=== PATIENT | female | born 1975 | race Caucasian/White ===

== ENCOUNTER → 2017-09-24 | Outpatient (CLI) | payer OTHER ==
[~2017-09-24] MED LIST: ESTRADIOL 1 MG T1 M1 PO; NEXIUM40 MG PO; PROZAC20 MG PO; SUPRAX400 M1 PO; ZITHROMAX1 GM PO
== END ==
LOC: M.RAD 12:37
DX: N63.42 Unspecified lump in left breast, subareolar (principal)

== ENCOUNTER → 2017-09-26 | Outpatient (CLI) | payer OTHER | END | disposition home or self-care (01) | LOC: M.ULTRA 07:59 | DX: D24.2 Benign neoplasm of left breast (principal); R92.1 Mammographic calcification found on diagnostic imaging of breast ==

== ENCOUNTER → 2017-10-16 | Outpatient (CLI) | payer OTHER | LOC: M.RAD 12:42 | DX: S99.821A Other specified injuries of right foot, initial encounter (principal); X58.XXXA Exposure to other specified factors, initial encounter; Y93.89 Activity, other specified; Y92.89 Other specified places as the place of occurrence of the external cause; Y99.8 Other external cause status ==

== ENCOUNTER → 2017-11-28 | Outpatient (CLI) | payer OTHER | LOC: M.CT 11-27 14:00 | DX: N83.291 Other ovarian cyst, right side (principal) ==

== ENCOUNTER 2017-12-03 14:08 | Emergency (ER) | payer OTHER ==
[~2017-12-03] VITALS: Ht 180.3 cm; Wt 81.7 kg
[2017-12-03 14:24] LABS: URINE BILIRUBIN NEGATIVE (Negative); URINE BLOOD 3+ (Negative); URINE CLARITY CLEAR; URINE COLOR YELLOW; URINE GLUCOSE-RANDOM NEGATIVE (Negative); URINE KETONES NEGATIVE (Negative); URINE LEUKOCYTES-REFLEX NEGATIVE (Negative); URINE NITRITE-REFLEX NEGATIVE (Negative); URINE PROTEIN NEGATIVE (Negative); URINE UROBILINOGEN 0.2 E.U./dl (0.2-1.0)
[2017-12-03] MEDS ORDERED: PROZAC20 MG PO (14:24)
[2017-12-03] MEDS ORDERED: NEXIUM40 MG PO (14:25)
[2017-12-03] MEDS ORDERED: ESTRADIOL 1 MG T1 M1 PO (14:25)
[2017-12-03 14:38] LABS: ABSOLUTE EOSINOPHILS 0.2 thou/uL (0.0-0.7); ABSOLUTE LYMPHOCYTES 1.1 thou/uL (0.8-5.3); ABSOLUTE MONOCYTES 0.3 thou/uL (0.0-1.2); ABSOLUTE NEUTROPHILS 2.9 thou/uL (1.6-8.1); BASOPHILS 0.9 %; EOSINOPHILS 3.9 %; HEMATOCRIT 38.2 % (37.0-47.0); HEMOGLOBIN 12.7 gm/dL (12.0-15.0); LYMPHOCYTES 24.9 %; MCHC 33.3 g/dL (28.0-37.0); MCV 96.1 fL (80.0-100.0); MPV 9.5 fl. (7.2-11.1); NUCLEATED RBCS 0 /100WBC; PLATELET COUNT* 173 thou/uL (150-400); POLYS 63.3 %; RBC 3.97 mil/uL (4.20-5.00); RDW-CV 14.1 % (10.5-14.5); WBC 4.6 thou/uL (4.0-11.0)
[2017-12-03 14:40] LABS: BACTERIA-REFLEX 1-9 Few /HPF (None Seen); CRYSTALS None Seen /LPF (None Seen); HYALINE CASTS 0-3 Few /LPF (None Seen); SQUAMOUS >10 Many /LPF (0-3); URINE RBC 3-10 Few /HPF (0-2); URINE WBC-REFLEX None Seen /HPF (0-5)
[2017-12-03 14:46] LABS: CALCIUM 8.4 mg/dL (8.5-10.1); CREATININE 0.8 mg/dL (0.6-1.3); POTASSIUM 3.8 mmol/L (3.5-5.1)
[2017-12-03 14:50] LABS: ALBUMIN 3.6 g/dL (3.4-5.0); TOTAL BILIRUBIN 0.2 mg/dL (<0.1-1.0); TOTAL PROTEIN 6.5 g/dL (6.4-8.2)
[2017-12-03] MEDS ORDERED: ZITHROMAX1 GM PO (16:48)
[2017-12-03] MEDS ORDERED: SUPRAX400 M1 PO (16:48)
[2017-12-03 16:57] VITALS: BP 117/57
--- NOTE | 2017-12-04 13:36 | EKG ---
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
== END 2017-12-03 16:59 | disposition home or self-care (01) ==
LOC: M.ERS 14:08
PROVIDERS: Nurse Practitioner Family
DX: R10.2 Pelvic and perineal pain (principal); F17.200 Nicotine dependence, unspecified, uncomplicated

== ENCOUNTER → 2017-12-16 | Outpatient (CLI) | payer OTHER | LOC: M.ULTRA 10:18 | DX: N63.20 Unspecified lump in the left breast, unspecified quadrant (principal); N64.4 Mastodynia; R10.32 Left lower quadrant pain ==

== ENCOUNTER 2018-11-17 09:13 | Inpatient (IN) | payer OTHER ==
[~2018-11-17] VITALS: Ht 180.3 cm; Wt 90.3 kg
--- NOTE | ~2018-11-17 | PROC ---
[facility] [address] [place] [address] PROCEDURE REPORT Name: MARIA DEL CARMEN LOZA Room: [address] IN ..#: [id number] Admission: 11/17/18 Attend Phys: Prem Ferrell MD Discharge: 11/20/18 Date of : 71 Report #: [id number] THIS REPORT FOR: //name// For GI report, please see the Provation report in Perceptive 7 content. By: [id number] Records Staff ELLEN /AJIT
[2018-11-17 09:16] VITALS: BP 128/74
[2018-11-17] MEDS ORDERED: VRAYLAR1 EACH PO (09:20)
[2018-11-17] MEDS ORDERED: DIAZEPAM 2MG TAB2 MG PO (09:20)
[2018-11-17 09:46] LABS: URINE BILIRUBIN NEGATIVE (Negative); URINE BLOOD 1+ (Negative); URINE CLARITY CLEAR; URINE COLOR YELLOW; URINE GLUCOSE-RANDOM NEGATIVE (Negative); URINE KETONES NEGATIVE (Negative); URINE LEUKOCYTES-REFLEX NEGATIVE (Negative); URINE NITRITE-REFLEX NEGATIVE (Negative); URINE PROTEIN NEGATIVE (Negative); URINE SPECIFIC GRAVITY <= 1.005 (1.005-1.030); URINE UROBILINOGEN 0.2 E.U./dl (0.2-1.0)
[2018-11-17 09:54] LABS: METHADONE Negative (Negative)
[2018-11-17 09:55] LABS: ABSOLUTE BASOPHILS 0.1 thou/uL (0.0-0.2); ABSOLUTE EOSINOPHILS 0.2 thou/uL (0.0-0.7); ABSOLUTE MONOCYTES 0.3 thou/uL (0.0-1.2); ABSOLUTE NEUTROPHILS 2.7 thou/uL (1.6-8.1); BASOPHILS 1.8 %; EOSINOPHILS 4.1 %; HEMATOCRIT 39.9 % (37.0-47.0); HEMOGLOBIN 13.5 gm/dL (12.0-15.0); LYMPHOCYTES 24.4 %; MCHC 33.9 g/dL (28.0-37.0); MCV 94.5 fL (80.0-100.0); MONOCYTES 6.9 %; MPV 9.3 fl. (7.2-11.1); NUCLEATED RBCS 0 /100WBC; PLATELET COUNT* 168 thou/uL (150-400); POLYS 62.8 %; RBC 4.22 mil/uL (4.20-5.00); RDW-CV 13.5 % (10.5-14.5); WBC 4.3 thou/uL (4.0-11.0)
[2018-11-17 10:00] LABS: BACTERIA-REFLEX 1-9 Few /HPF (None Seen); CASTS None Seen /LPF (None Seen); CRYSTALS None Seen /LPF (None Seen); MUCUS None Seen strn/LPF (None Seen); SQUAMOUS 4-10 Moderate /LPF (0-3); URINE RBC 3-10 Few /HPF (0-2); URINE WBC-REFLEX 0-5 Rare /HPF (0-5)
[2018-11-17 10:03] LABS: CALCIUM 8.8 mg/dL (8.5-10.1); CREATININE 0.8 mg/dL (0.6-1.3)
[2018-11-17 10:08] LABS: ALBUMIN 3.4 g/dL (3.4-5.0); TOTAL BILIRUBIN 0.4 mg/dL (<0.1-1.0); TOTAL PROTEIN 6.4 g/dL (6.4-8.2)
[2018-11-17 10:17] LABS: AMP/METHAMP Negative (Negative); BARBITURATES Negative (Negative); BENZODIAZEPINES Negative (Negative); COCAINE Negative (Negative); OPIATES Negative (Negative); PCP Negative (Negative); THC POSITIVE (Negative)
[2018-11-17 13:49] VITALS: BP 110/57
[2018-11-17 14:18] VITALS: BP 124/29
[2018-11-17 16:44] VITALS: BP 112/79; BP 119/74; BP 129/68
--- NOTE | 2018-11-17 17:05 | NUR ---
PATIENT ADMITTED TO ROOM 111 [facility] ER. ALERT AND ORIENTED X 4. C/O AND PAIN, PRN MORPHINE GIVEN PER MAR ORDERS. IVF AND SCHED ABX INFUSED. NO SKIN BREAKDOWN. REFUSED SCD'S. PATIENT BROUGHT IN HOME BIPOLAR MEDICATION, SENT TO PHARMACY PER PROTOCOL. VITALS STABLE. CLEAR LIQUID DIET. NPO AFTER MIDNIGHT. ORIENTED TO CALL LIGHT. CALL LIGHT WITHIN REACH, WILL CONTINUE TO MONITOR.
[2018-11-17 20:50] VITALS: BP 133/50
[2018-11-18 03:48] LABS: HEMATOCRIT 35.8 % (37.0-47.0); MCH 32.1 pg (26.0-34.0); MCHC 33.6 g/dL (28.0-37.0); MCV 95.4 fL (80.0-100.0); MPV 10.1 fl. (7.2-11.1); RBC 3.75 mil/uL (4.20-5.00); RDW-CV 13.4 % (10.5-14.5); WBC 6.4 thou/uL (4.0-11.0)
[2018-11-18 04:08] LABS: CALCIUM 8.4 mg/dL (8.5-10.1); CREATININE 0.7 mg/dL (0.6-1.3); MAGNESIUM 1.9 mg/dL (1.8-2.4); POTASSIUM 4.7 mmol/L (3.5-5.1); TOTAL BILIRUBIN 0.4 mg/dL (<0.1-1.0); TOTAL PROTEIN 5.6 g/dL (6.4-8.2)
--- NOTE | 2018-11-18 05:24 | NUR ---
PATIENT HAS SLEPT OFF AND ON DURING THE NIGHT BUT RESTLESS AT TIMES. VSS ON RA. PAIN CONTROLLED WITH IV PAIN MEDICATION AND CHARTED. NO C/O NAUSEA. PATIENT HAS REMAINED NPO SINCE MIDNIGHT. IV IN LEFT AC- NS @ 150ML/HR. PATIENT INSTRUCTED TO USE CALL LIGHT WHEN NEEDING ASSISTANCE. HOURLY ROUNDS MADE. WILL CONTINUE WITH PLAN OF CARE AND NURSING TO MONITOR.
[2018-11-18 07:40] VITALS: BP 131/53
--- NOTE | 2018-11-18 12:57 | NUR ---
SW met with pt to complete initial assessment, introduce self, and SW CM role. Pt was in tears and in pain; she explained she had morphine shot 15 minutes ago but was not feeling any relief. Pt expecting to have an endoscopy tomorrow. Pt lives at home with significant other and is independent with mobility and ADLs. Pt does not anticipate any dc needs at this time. SW to continue to follow to assist with safe dc planning if needs arise.
[2018-11-18 16:30] VITALS: BP 140/83
--- NOTE | 2018-11-18 18:11 | NUR ---
ASSUMED CARE OF PATIENT AT APPROX 0730. ALERT AND ORIENTED X4. ASSESSMENT COMPLETED AND CHARTED. VSS ON ROOM AIR. PAIN MANAGED WITH MORPHINE IV. NAUSEA MANAGED WITH IV ZOFRAN. NO COMPLAINTS OF SOA. PATIENT HAD SOME ANXIETY MID MORNING, GAVE XANAX WITH RELIEF NOTED. FLUIDS AND ANTIBIOTICS INFUSED ORDERED. PATIENT STARTED ON BOWEL PREP AND HAVING MULTIPLE BOWEL MOVEMENTS. EGD AND COLONOSCOPY SCHEDULED FOR TOMORROW. PATIENT UP AD MARJORIE IN THE ROOM. HOURLY ROUNDS COMPLETED. WILL CONTINUE TO MONITOR.
--- NOTE | 2018-11-18 19:06 | CON ---
[facility] [address] [place] [address] CONSULTATION Name: MARIA DEL CARMEN LOZA Room: [address] IN [facility].#: [id number] Admission: 11/17/18 Attend Phys: Prem Ferrell MD Discharge: Date of : 71 Report #: [id number] THIS REPORT FOR: //name// CC: Prem José DICTATED BY: Carley Rosen [facility] DATE OF SERVICE: 11/18/2018 Please note at the time of this dictation, the patient was seen and physically examined by myself. REASON FOR CONSULTATION: History of Crohn's disease, abdominal pain, nausea and vomiting. HISTORY OF PRESENT ILLNESS: This is a 43-year-old female who presented to the emergency room with having worsening of her abdominal pain, which was exacerbated over the weekend, likely related to excessive alcohol consumption, which she admits to she was having nausea and vomiting, worsening of her GERD. She was having worsening of her abdominal pain. She has intermittent constipation versus diarrhea and she did notice on Saturday evening and early Saturday morning that she did have some bright red blood noted in her stool. The patient was diagnosed with her Crohn's disease back in around 1999. She has had a small bowel resection and was told that she has been in remission since then. She does state that she did take prednisone about 4 months ago and has used Asacol in the past. Her small bowel resection was back in 2005. She states she will go from constipation to numerous frequency and stooling up to 8 a day and she can go several days without having a bowel movement. She does have some intermittent nocturnal stooling as well with just this generalized abdominal pain. The patient was recently seen in our office on 11/05 by josue Hawkins and was scheduled to have an EGD and colonoscopy on 11/12; however, she canceled her procedure because they needed $600 out of pocket and she did not have that. ALLERGIES: CIPRO, FENTANYL, AND CLONIDINE. MEDICATIONS FROM HOME: Prozac, Nexium, Vraylar and Valium. PAST MEDICAL HISTORY: History of Crohn's. She states ovarian cyst. PAST SURGICAL HISTORY: Small bowel resection of about 6 inches back in 2005, tubal ligation, appendectomy and a cholecystectomy. FAMILY HISTORY: Mother, ulcerative colitis and alcohol abuse. Negative for any GI [place] [address] CONSULTATION Name: MARIA DEL CARMEN LOZA Room: [address]#: [id number] Admission: 11/17/18 Attend Phys: Prem Ferrell MD Discharge: Date of : 71 Report #: [id number] SOCIAL HISTORY: She does smoke about a half a pack per day. She drinks alcohol at least hard liquor drink every night and sometimes excessively on the weekends, which she did this past . She also uses marijuana nightly as well. REVIEW OF SYSTEMS: A 12-point review of systems is essentially negative except what is mentioned in the HPI. PHYSICAL EXAMINATION: VITAL SIGNS: Temperature 36.6, pulse 50, respirations 17, blood pressure 131/53. HEART: Regular rate and rhythm. LUNGS: Clear. ABDOMEN: Soft, positive bowel sounds in all 4 quadrants with diffuse abdominal tenderness noted worsening in the upper epigastric area. LABORATORY DATA: Hemoglobin 12, white count 6.4, platelets 154. GFR is 90, total bilirubin 0.4, alkaline phosphatase is 84, ALT 91, AST is 85, ESR is 4, CRP is less than 2. CT of the abdomen and pelvis shows postsurgical changes, otherwise negative findings. IMPRESSION: Abdominal pain, nausea, vomiting, bright red blood in stool, history of Crohn's, heartburn, B12 deficiency. PLAN: 1. EGD and colonoscopy tomorrow. 2. Clear liquids today. 3. Further recommendations to be made after the procedure has been performed. Thank you for allowing us to participate in this patient's care. Please do not hesitate to call with any questions in regard to this consult. Agree with the above assessment and plan by Carley Rosen <ELECTRONICALLY SIGNED> By: Wang Lundberg MD 11/18/18 1906 1122 1408Wang Lundberg MD /nt
[2018-11-18 21:15] VITALS: BP 118/78
[2018-11-19 03:58] LABS: ALBUMIN 3.3 g/dL (3.4-5.0); CALCIUM 8.1 mg/dL (8.5-10.1); CREATININE 0.8 mg/dL (0.6-1.3); MAGNESIUM 1.9 mg/dL (1.8-2.4); POTASSIUM 3.8 mmol/L (3.5-5.1); TOTAL BILIRUBIN 0.3 mg/dL (<0.1-1.0)
[2018-11-19 04:11] VITALS: BP 118/78
--- NOTE | 2018-11-19 06:12 | NUR ---
PT EXPERIENCED VOMITING AND NAUSEA THROUGHOUT NIGHT. HAD SEVERAL WATERY BOWEL MOVEMENTS. LAST ONE REPORTED TO BE A LIGHT YELLOW. PATIENT HAS BEEN ON 8 MG/ML OF MORPHINE Q8 AND 4 MG/ML ZOFRAN Q4. OTHER PAIN RELIEF COMES FROM CALM ENVIRONMENT AND DIM LIGHTS. PATIENT HAS BEEN NPO SINCE MIDNIGHT.
[2018-11-19 07:50] VITALS: BP 123/77
[2018-11-19 10:00] VITALS: BP 118/78
[2018-11-19 16:00] VITALS: BP 124/73
--- NOTE | 2018-11-19 17:55 | NUR ---
ASSUMED CARE OF PATIENT AT APPROX 0730. ALERT AND ORIENTED X4. ASSESSMENT COMPLETED AND CHARTED. VSS ON ROOM AIR. PAIN MANAGED WITH IV MORPHINE. NAUSEA MANAGED WITH IV ZOFRAN. FLUIDS INFUSED ORDERED. PATIENT TO PACU AT APPROX 0940 AND HAS NOT RETURNED TO UNIT OF THIS TIME. WILL CONTINUE TO MONITOR WHEN PATIENT RETURNS.
--- NOTE | 2018-11-19 18:29 | NUR ---
PATIENT ARRIVED BACK TO UNIT AT 1811. ALERT AND OREINTED X4. NO COMPLAINTS OF NAUSEA OR PAIN. PATIENT EATING REGULAR DINNER TRAY. CALL LIGHT PLACED IN REACH. WILL CONTINUE TO MONITOR.
[2018-11-19 19:30] VITALS: BP 146/78
[2018-11-20 03:57] LABS: CALCIUM 8.4 mg/dL (8.5-10.1); CREATININE 0.9 mg/dL (0.6-1.3); MAGNESIUM 1.7 mg/dL (1.8-2.4); POTASSIUM 3.7 mmol/L (3.5-5.1); TOTAL BILIRUBIN 0.3 mg/dL (<0.1-1.0); TOTAL PROTEIN 5.4 g/dL (6.4-8.2)
--- NOTE | 2018-11-20 06:15 | NUR ---
PATIENT SLEPT ON AND OFF THROUGH NIGHT. ADMINISTERED PAIN MEDICATION Q4 8 ML/MG ALONG WITH ZOFRAN. NO COMPLAINTS OF WORSENING NAUSEA OR PAIN. REPORTED COUGHING UP SLIGHTLY BLOODY SPUTUM AT BEGINNING OF THE SHIFT. THIS APPEARED TO SUBSIDE THROUGH THE NIGHT.
[2018-11-20] MEDS ORDERED: BENTYL 20 MG TA20 M1 PO (07:46)
[2018-11-20 08:00] VITALS: BP 136/75
[2018-11-20 08:22] VITALS: BP 146/78
[2018-11-20 10:33] VITALS: BP 146/78
[2018-11-20 10:55] VITALS: BP 146/78
--- NOTE | 2018-11-20 10:55 | NUR ---
PATIENT DISCHARGED TO HOME. DISCHARGE PAPERS REVIEWED AND SIGNED. PRESCRIPTIONS AND INFORMATION SHEETS GIVEN. IV REMOVED. PATIENT REFUSED SBFT AND TO WAIT FOR GI TO ROUND. PATIENT REFUSED TO WAIT IN ROOM FOR RIDE TO COME. PATIENT WAITING IN CAFETERIA. NURSE MANAGER REVIEW INFORMED.
--- NOTE | 2018-11-21 13:08 | PATH ---
[facility] [address] [place] [address] PATHOLOGY RPT PROCEDURE Name: JUDIE PETERS Room: [address] IN .R.#: [id number] Admission: 11/17/18 Date of : 71 Discharge: 11/20/18 Report #: [id number] Path Case #: [id number] [facility] Accession Number: [id number] . 01 Material submitted: . colon - RANDOM COLON BIOPSIES . 01 Clinical history: . None provided. . 02 Diagnosis: Random colon biopsies: - Focal fresh hemorrhage in otherwise normal colonic mucosa. (JARRETT:pit; 11/21/2018) QTP/11/21/2018 . 02 Electronically signed: . Beka Bucio MD, Pathologist NPI- [id number] . 01 Gross description: . Received in formalin labeled "Judie Peters random colon biopsies" is a 1.8 x 0.5 x 0.2 cm aggregate of anderson-brown mucosa fragments. The specimen is submitted in A1. ([facility]; 11/20/2018) SYC/SYC . 02 Pathologist provided ICD-10: K50.90 . 02 CPT . 901455 Specimen Comment: A courtesy copy of this report has been sent to Specimen Comment: [phone], . Specimen Comment: Report sent to / DR BURGESS Performed at: [address], [place], [place] [id number] MD Albert Caicedo MD Phone: [phone] Performed at: 02 [facility] [address], [place], [place] [id number] MD Beka Bucio MD Phone: [phone]
== END 2018-11-20 10:55 | disposition home or self-care (01) | DRG 386 ==
LOC: M.ERS 09:13 → M.ORTHSURG 12:30 → M.TBA-ER 12:30 → M.ORTHSURG 13:56
PROVIDERS: Personal Emergency Response Attendant; ADMIT Internal Medicine
PROC: 0DJ08ZZ Inspection of Upper Intestinal Tract, Via Natural or Artificial Opening Endoscopic (ICD-10-PCS; principal; 2018-11-19)
DX: K50.90 Crohn's disease, unspecified, without complications (principal); E44.1 Mild protein-calorie malnutrition; K62.5 Hemorrhage of anus and rectum; K21.9 Gastro-esophageal reflux disease without esophagitis; F17.210 Nicotine dependence, cigarettes, uncomplicated; E53.8 Deficiency of other specified B group vitamins; E86.9 Volume depletion, unspecified; K12.0 Recurrent oral aphthae; F32.9 Major depressive disorder, single episode, unspecified; R74.0 Nonspecific elevation of levels of transaminase and lactic acid dehydrogenase [LDH]; F10.10 Alcohol abuse, uncomplicated; K64.9 Unspecified hemorrhoids; K44.9 Diaphragmatic hernia without obstruction or gangrene; Z90.49 Acquired absence of other specified parts of digestive tract; Z88.1 Allergy status to other antibiotic agents; Z88.8 Allergy status to other drugs, medicaments and biological substances; Z79.2 Long term (current) use of antibiotics; Z79.899 Other long term (current) drug therapy; Z88.6 Allergy status to analgesic agent; Z81.1 Family history of alcohol abuse and dependence; Z83.79 Family history of other diseases of the digestive system; Z68.27 Body mass index [BMI] 27.0-27.9, adult

== ENCOUNTER 2020-03-01 12:47 | Emergency (ER) | payer OTHER ==
[~2020-03-01] VITALS: Ht 180.3 cm; Wt 98.0 kg
[~2020-03-01 12:47] MED LIST changes: +BENTYL 20 MG TA20 M1 PO; +DIAZEPAM 2MG TAB2 MG PO; +VRAYLAR1 EACH PO
[2020-03-01] MEDS ORDERED: FLOMAX0.4 MG PO (13:04)
[2020-03-01 13:16] LABS: URINE BILIRUBIN NEGATIVE (Negative); URINE BLOOD 1+ (Negative); URINE CLARITY CLEAR; URINE COLOR YELLOW; URINE GLUCOSE-RANDOM NEGATIVE (Negative); URINE KETONES 1+ (Negative); URINE LEUKOCYTES-REFLEX NEGATIVE (Negative); URINE NITRITE-REFLEX NEGATIVE (Negative); URINE PROTEIN NEGATIVE (Negative); URINE SPECIFIC GRAVITY 1.025 (1.005-1.030); URINE UROBILINOGEN 0.2 E.U./dl (0.2-1.0)
[2020-03-01 13:21] LABS: BACTERIA-REFLEX 1-9 Few /HPF (None Seen); CASTS None Seen /LPF (None Seen); CRYSTALS None Seen /LPF (None Seen); SQUAMOUS 0-3 Few /LPF (0-3); URINE RBC 3-10 Few /HPF (0-2); URINE WBC-REFLEX 0-5 Rare /HPF (0-5)
[2020-03-01 13:36] LABS: CALCIUM 8.1 mg/dL (8.5-10.1); CREATININE 1.4 mg/dL (0.6-1.3); POTASSIUM 4.3 mmol/L (3.5-5.1)
[2020-03-01 13:41] LABS: ALBUMIN 3.9 g/dL (3.4-5.0); TOTAL BILIRUBIN 0.3 mg/dL (<0.1-1.0); TOTAL PROTEIN 7.1 g/dL (6.4-8.2)
[2020-03-01 13:45] LABS: ABSOLUTE EOSINOPHILS 0.2 thou/uL (0.0-0.7); ABSOLUTE LYMPHOCYTES 1.2 thou/uL (0.8-5.3); ABSOLUTE MONOCYTES 0.3 thou/uL (0.0-1.2); ABSOLUTE NEUTROPHILS 2.5 thou/uL (1.6-8.1); BASOPHILS 1.1 %; EOSINOPHILS 5.5 %; HEMATOCRIT 41.6 % (37.0-47.0); LYMPHOCYTES 28.4 %; MCH 32.3 pg (26.0-34.0); MCHC 33.7 g/dL (28.0-37.0); MCV 95.7 fL (80.0-100.0); MONOCYTES 6.7 %; MPV 9.3 fl. (7.2-11.1); NUCLEATED RBCS 0 /100WBC; PLATELET COUNT* 210 thou/uL (150-400); POLYS 58.3 %; RBC 4.35 mil/uL (4.20-5.00); RDW-CV 13.2 % (10.5-14.5); WBC 4.3 thou/uL (4.0-11.0)
[2020-03-01] MEDS ORDERED: HYDROCODON-ACE1 EAC7 PO (15:51)
[2020-03-01] MEDS ORDERED: NAPROSYN500 MG PO (15:51)
[2020-03-01] MEDS ORDERED: ONDANSETRON ODT4 MG PO (16:00)
[2020-03-01 16:06] VITALS: BP 128/81
== END 2020-03-01 16:06 | disposition home or self-care (01) ==
LOC: M.ERS 12:47
PROVIDERS: Physician Assistant
DX: R10.31 Right lower quadrant pain (principal); R10.11 Right upper quadrant pain; K21.9 Gastro-esophageal reflux disease without esophagitis; F17.210 Nicotine dependence, cigarettes, uncomplicated; Z88.1 Allergy status to other antibiotic agents; Z88.6 Allergy status to analgesic agent; Z88.8 Allergy status to other drugs, medicaments and biological substances; Z98.51 Tubal ligation status; Z90.49 Acquired absence of other specified parts of digestive tract

== ENCOUNTER 2020-03-04 08:29 | Observation (INO) | payer OTHER ==
[~2020-03-04] VITALS: Ht 180.3 cm; Wt 98.0 kg
--- NOTE | ~2020-03-04 | PROC ---
[facility] [address] [place] [address] PROCEDURE REPORT Name: MARIA DEL CARMEN LOZA Room: [address] Roxanne Pedersen#: [id number] Admission: 03/04/20 Attend Phys: Cristela Crowell MD Discharge: 03/07/20 Date of : 71 Report #: [id number] THIS REPORT FOR: //name// cc: Katerine José Maggie M. DO ~ For GI report, please see the Provation report in Perceptive 7 content. By: [id number] Records Staff [facility] /AJIT
[~2020-03-04 08:29] MED LIST changes: +FLOMAX0.4 MG PO; +HYDROCODON-ACE1 EAC7 PO; +NAPROSYN500 MG PO; +ONDANSETRON ODT4 MG PO
[2020-03-04 08:34] VITALS: BP 135/69
[2020-03-04 08:54] LABS: ABSOLUTE EOSINOPHILS 0.2 thou/uL (0.0-0.7); ABSOLUTE MONOCYTES 0.4 thou/uL (0.0-1.2); ABSOLUTE NEUTROPHILS 7.4 thou/uL (1.6-8.1); BASOPHILS 0.4 %; EOSINOPHILS 2.2 %; HEMATOCRIT 42.9 % (37.0-47.0); HEMOGLOBIN 14.6 gm/dL (12.0-15.0); LYMPHOCYTES 11.2 %; MCH 32.2 pg (26.0-34.0); MCHC 34.1 g/dL (28.0-37.0); MCV 94.4 fL (80.0-100.0); MONOCYTES 3.9 %; MPV 8.9 fl. (7.2-11.1); NUCLEATED RBCS 0 /100WBC; PLATELET COUNT* 251 thou/uL (150-400); POLYS 82.3 %; RBC 4.55 mil/uL (4.20-5.00); RDW-CV 13.1 % (10.5-14.5)
[2020-03-04 08:57] LABS: URINE BILIRUBIN NEGATIVE (Negative); URINE BLOOD TRACE (Negative); URINE CLARITY CLEAR; URINE COLOR YELLOW; URINE GLUCOSE-RANDOM NEGATIVE (Negative); URINE KETONES NEGATIVE (Negative); URINE LEUKOCYTES-REFLEX NEGATIVE (Negative); URINE NITRITE-REFLEX NEGATIVE (Negative); URINE PROTEIN 2+ (Negative); URINE SPECIFIC GRAVITY 1.015 (1.005-1.030); URINE UROBILINOGEN 0.2 E.U./dl (0.2-1.0)
[2020-03-04 09:04] LABS: SQUAMOUS >10 Many /LPF (0-3)
[2020-03-04 09:05] LABS: BACTERIA-REFLEX >30 Many /HPF (None Seen); URINE RBC 0-2 Rare /HPF (0-2); URINE WBC-REFLEX 0-5 Rare /HPF (0-5)
[2020-03-04 09:06] LABS: CASTS None Seen /LPF (None Seen); CRYSTALS None Seen /LPF (None Seen); MUCUS 0-3 Light strn/LPF (None Seen)
[2020-03-04 09:09] LABS: CALCIUM 8.7 mg/dL (8.5-10.1)
[2020-03-04 09:13] LABS: TOTAL BILIRUBIN 0.4 mg/dL (<0.1-1.0); TOTAL PROTEIN 7.4 g/dL (6.4-8.2)
[2020-03-04 09:38] LABS: AMP/METHAMP Negative (Negative); BARBITURATES Negative (Negative); BENZODIAZEPINES POSITIVE (Negative); COCAINE Negative (Negative); METHADONE Negative (Negative); OPIATES POSITIVE (Negative); PCP Negative (Negative); THC POSITIVE (Negative)
[2020-03-04 15:48] VITALS: BP 139/72
[2020-03-04 16:20] VITALS: BP 139/73
--- NOTE | 2020-03-04 16:43 | EKG ---
[place] [address] ELECTROCARDIOGRAM REPORT Name: MARIA DEL CARMEN LOZA Room: [address] IN ..#: [id number] Admission: 03/04/20 Attend Phys: Cristela Crowell, Discharge: Date of : 71 Date of Service: 03/04/20919 Report #: [id number] THIS REPORT FOR: //name// 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
[2020-03-04 20:20] VITALS: BP 106/67
[2020-03-05 00:49] VITALS: BP 106/67
[2020-03-05 08:03] VITALS: BP 115/63
[2020-03-05 13:45] VITALS: BP 121/72
[2020-03-05 15:46] VITALS: BP 110/53
[2020-03-05 16:30] LABS: ABSOLUTE LYMPHOCYTES 1.2 thou/uL (0.8-5.3); ABSOLUTE MONOCYTES 0.4 thou/uL (0.0-1.2); ABSOLUTE NEUTROPHILS 4.4 thou/uL (1.6-8.1); BASOPHILS 0.3 %; EOSINOPHILS 0.2 %; HEMATOCRIT 37.5 % (37.0-47.0); HEMOGLOBIN 12.7 gm/dL (12.0-15.0); MCH 32.6 pg (26.0-34.0); MONOCYTES 6.4 %; MPV 9.5 fl. (7.2-11.1); NUCLEATED RBCS 0 /100WBC; POLYS 73.1 %; RDW-CV 13.5 % (10.5-14.5)
[2020-03-05 16:35] LABS: PLATELET COUNT* 172 thou/uL (150-400)
[2020-03-05 16:44] LABS: ALBUMIN 3.5 g/dL (3.4-5.0); CALCIUM 8.4 mg/dL (8.5-10.1); CREATININE 0.9 mg/dL (0.6-1.3); POTASSIUM 3.6 mmol/L (3.5-5.1); TOTAL BILIRUBIN 0.4 mg/dL (<0.1-1.0); TOTAL PROTEIN 6.5 g/dL (6.4-8.2)
[2020-03-05 17:42] LABS: ESR (SEDRATE) 5 mm/hr (0-20)
[2020-03-05 19:40] VITALS: BP 120/71
[2020-03-06 05:13] LABS: HEMATOCRIT 36.5 % (37.0-47.0); HEMOGLOBIN 12.2 gm/dL (12.0-15.0); MCH 32.4 pg (26.0-34.0); MCHC 33.4 g/dL (28.0-37.0); MCV 97.1 fL (80.0-100.0); MPV 9.3 fl. (7.2-11.1); RBC 3.76 mil/uL (4.20-5.00); RDW-CV 13.6 % (10.5-14.5); WBC 4.3 thou/uL (4.0-11.0)
[2020-03-06 05:32] LABS: ALBUMIN 3.4 g/dL (3.4-5.0); CALCIUM 8.4 mg/dL (8.5-10.1); CREATININE 0.9 mg/dL (0.6-1.3); MAGNESIUM 1.8 mg/dL (1.8-2.4); POTASSIUM 3.8 mmol/L (3.5-5.1); TOTAL BILIRUBIN 0.5 mg/dL (<0.1-1.0); TOTAL PROTEIN 6.2 g/dL (6.4-8.2)
[2020-03-06 07:41] VITALS: BP 119/39
[2020-03-06] MEDS ORDERED: MIRALAX17 GM PO (09:13)
[2020-03-06 16:06] VITALS: BP 112/64
[2020-03-06 20:30] VITALS: BP 124/70
[2020-03-07] MEDS ORDERED: TRAMADOL 50 MG50 MG PO (07:27)
[2020-03-07 07:46] VITALS: BP 129/72
[2020-03-07 09:47] VITALS: BP 129/72
--- NOTE | 2020-03-09 13:08 | PATH ---
[facility] [address] [place] [address] PATHOLOGY RPT PROCEDURE Name: DAGOJUDIE Matthew Room: [address] Roxanne Pedersen#: [id number] Admission: 03/04/20 Date of : 71 Discharge: 03/07/20 Report #: [id number] Path Case #: [id number] [facility] Accession Number: [id number] . 01 Material submitted: . PART A: small bowel - SMALL BOWEL BIOPSY FOR POSSIBLE CELIAC DISEASE PART B: stomach - ANTRAL BIOPSY FOR H. PYLORI PART C: ileum - BIOPSY TERMINAL ILEUM EROSION, HISTORY OF CROHN'S DISEASE PART D: ileum - BIOPSY OF ILEO-COLONIC ANASTAMOSIS ULCERS PART E: colon - SIGMOID COLON SUSPECTED ISCHEMIC COLITIS BIOPSY. Modifiers: sigmoid . 01 Clinical history: . ABDOMINAL PAIN . 02 Diagnosis: A. Small bowel biopsy: - Normal small intestinal mucosa. . B. Antral biopsy: - Mild chronic antral gastritis suggesting reactive gastropathy (chemical gastritis), negative for Helicobacter pylori organisms, granulomas and dysplasia. . C. Biopsy terminal ileum erosion: - Nonspecific active ileitis with ulceration, negative for granulomas, viral inclusions and dysplasia. See comment. . D. Ileocolonic anastomosis ulcers biopsy: - Nonspecific active colitis with ulceration, negative for granulomas, viral inclusions and dysplasia. See comment. . E. Sigmoid colon biopsy: - Active colitis with erosion typical of ischemic colitis, negative for granulomas, viral inclusions and dysplasia. See comment. (JARRETT:maricruz 03/09/2020) [facility] 03/09/2020 1222 Local . 02 Comment: In the terminal ileum, ileocolonic anastomosis, and sigmoid colon biopsies (C, D and E) there is no significant basal lymphoplasmacytosis or crypt distortion to elevate a concern for a Crohn's disease etiology for the inflammatory changes, although it cannot be entirely excluded. The sigmoid colon biopsy (E) shows histologic features typical of ischemic colitis including mucosal erosion and atrophy and preservation of the deepest aspect of crypts in association with active inflammation, condensation of lamina propria and hyaline thrombi in [place] [address] PATHOLOGY RPT PROCEDURE Name: JUDIE LOZA Room: [address] Roxanne Pedersen#: [id number] Admission: 03/04/20 Date of : 71 Discharge: 03/07/20 Report #: [id number] Path Case #: [id number] (JARRETT:maricruz 03/09/2020) . Special stain on B: H. pylori immuno . 02 Electronically signed: . Beka Bucio MD, Pathologist NPI- [id number] . 01 Gross description: . A. The specimen is received in formalin, labeled "Rich, Judie, small bowel biopsy" and consists of 3 fragments of anderson tissue measuring between 0.2 x 0.2 cm and 0.5 x 0.3 cm which are entirely submitted in A1. . B. The specimen is received in formalin, labeled "Rich, Judie, antral BX" and consists of 2 fragments of pink-anderson tissue measuring 0.3 x 0.2 cm and 0.3 x 0.3 cm which are entirely submitted in B1. . C. The specimen is received in formalin, labeled "Rich, Judie, biopsy terminal ileum erosion" and consists of a fragment of pink-anderson tissue measuring 0.7 x 0.3 cm which is entirely submitted in C1. . D. The specimen is received in formalin, labeled "Rich, Judie, BX ileocolonic anastomosis ulcers" and consists of 2 fragments of anderson tissue measuring 0.3 x 0.2 cm and 0.3 x 0.3 cm which are entirely submitted in D1. . E. The specimen is received in formalin, labeled "Rich, Judie, sigmoid colon" and consists of 4 fragments of pink-anderson tissue measuring between 0.2 x 0.2 cm and 0.4 x 0.1 cm which are entirely submitted in E1. (SDY; 03/08/2020) SYU/SYU 03/08/2020 1432 Local . 02 Pathologist provided ICD-10: K29.50, K52.9, K63.3, R10.9 . 02 CPT . 055054, 839025, 772241, 155368, 942246, L05366 Specimen Comment: A courtesy copy of this report has been sent to [phone] Specimen Comment: [phone], Specimen Comment: Report sent to ,DR WETZEL / DR MENESES Performed at: [address] [facility] [address], [place], [place] [id number] MD Geronimo Arndt MD Phone: [phone] Performed at: 02 [facility] [address], [place], [place] [id number] MD Beka Bucio MD Phone: [phone]
== END 2020-03-07 10:17 | disposition home or self-care (01) ==
LOC: M.ERS 08:29 → M.TBA-ER 12:53 → M.ORTHSURG 12:53
PROVIDERS: Emergency Medicine Emergency Medical Services; Internal Medicine Gastroenterology; ADMIT Internal Medicine; ATTEND Internal Medicine
DX: K92.2 Gastrointestinal hemorrhage, unspecified (principal); K55.9 Vascular disorder of intestine, unspecified; K21.9 Gastro-esophageal reflux disease without esophagitis; K31.9 Disease of stomach and duodenum, unspecified; K50.90 Crohn's disease, unspecified, without complications; F32.9 Major depressive disorder, single episode, unspecified; K59.00 Constipation, unspecified; F17.210 Nicotine dependence, cigarettes, uncomplicated; Z79.899 Other long term (current) drug therapy

== ENCOUNTER 2020-10-11 09:11 | Emergency (ER) | payer OTHER ==
[~2020-10-11] VITALS: Ht 180.3 cm; Wt 98.4 kg
[~2020-10-11 09:11] MED LIST changes: +MIRALAX17 GM PO; +TRAMADOL 50 MG50 MG PO
[2020-10-11] MEDS ORDERED: PREDNISONE 10 M10 M1 PO (10:35)
[2020-10-11] MEDS ORDERED: PROAIR HFA8.5 GM INH (10:35)
[2020-10-11 10:51] VITALS: BP 108/69
--- NOTE | 2020-10-12 10:30 | EKG ---
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 10/12/20 1030 4 4 Mohit Barragan MD, [facility] /EPI
== END 2020-10-11 10:52 | disposition home or self-care (01) ==
LOC: M.ERS 09:11
DX: J40 Bronchitis, not specified as acute or chronic (principal); Z20.822 Contact with and (suspected) exposure to COVID-19; K21.9 Gastro-esophageal reflux disease without esophagitis; F17.210 Nicotine dependence, cigarettes, uncomplicated; Z90.49 Acquired absence of other specified parts of digestive tract; Z98.51 Tubal ligation status; Z87.42 Personal history of other diseases of the female genital tract; Z79.899 Other long term (current) drug therapy; Z88.1 Allergy status to other antibiotic agents; Z88.8 Allergy status to other drugs, medicaments and biological substances

== ENCOUNTER 2020-11-10 06:54 | Emergency (ER) | payer OTHER ==
[~2020-11-10] VITALS: Ht 180.3 cm; Wt 98.4 kg
[~2020-11-10 06:54] MED LIST changes: +PREDNISONE 10 M10 M1 PO; +PROAIR HFA8.5 GM INH
[2020-11-10 07:29] LABS: URINE BILIRUBIN NEGATIVE (Negative); URINE BLOOD 1+ (Negative); URINE CLARITY CLEAR; URINE COLOR YELLOW; URINE GLUCOSE-RANDOM NEGATIVE (Negative); URINE KETONES NEGATIVE (Negative); URINE LEUKOCYTES-REFLEX NEGATIVE (Negative); URINE NITRITE-REFLEX NEGATIVE (Negative); URINE PROTEIN NEGATIVE (Negative); URINE SPECIFIC GRAVITY <= 1.005 (1.005-1.030); URINE UROBILINOGEN 0.2 E.U./dl (0.2-1.0)
[2020-11-10 07:33] LABS: ABSOLUTE EOSINOPHILS 0.1 thou/uL (0.0-0.7); ABSOLUTE LYMPHOCYTES 1.1 thou/uL (0.8-5.3); ABSOLUTE MONOCYTES 0.2 thou/uL (0.0-1.2); ABSOLUTE NEUTROPHILS 2.7 thou/uL (1.6-8.1); BASOPHILS 0.7 %; EOSINOPHILS 3.4 %; HEMATOCRIT 40.5 % (37.0-47.0); HEMOGLOBIN 14.2 gm/dL (12.0-15.0); LYMPHOCYTES 26.4 %; MCH 33.2 pg (26.0-34.0); MCV 94.9 fL (80.0-100.0); MONOCYTES 5.3 %; MPV 9.4 fl. (7.2-11.1); NUCLEATED RBCS 0 /100WBC; PLATELET COUNT* 186 thou/uL (150-400); POLYS 64.2 %; RBC 4.27 mil/uL (4.20-5.00); RDW-CV 12.9 % (10.5-14.5); WBC 4.2 thou/uL (4.0-11.0)
[2020-11-10 07:40] LABS: BACTERIA-REFLEX 1-9 Few /HPF (None Seen); CASTS None Seen /LPF (None Seen); CRYSTALS None Seen /LPF (None Seen); SQUAMOUS 0-3 Few /LPF (0-3); URINE RBC 0-2 Rare /HPF (0-2); URINE WBC-REFLEX 0-5 Rare /HPF (0-5)
[2020-11-10 07:49] LABS: CALCIUM 8.5 mg/dL (8.5-10.1); CREATININE 0.7 mg/dL (0.6-1.3)
[2020-11-10 07:53] LABS: ALBUMIN 3.6 g/dL (3.4-5.0); TOTAL BILIRUBIN 0.3 mg/dL (<0.1-1.0); TOTAL PROTEIN 6.6 g/dL (6.4-8.2)
[2020-11-10] MEDS ORDERED: HYDROCODON-ACE1 EAC7 PO (09:26)
[2020-11-10] MEDS ORDERED: ZOFRAN ODT4 MG DISSOLVE (09:26)
[2020-11-10 10:30] VITALS: BP 130/66
--- NOTE | 2020-11-10 11:43 | EKG ---
[place] [address] ELECTROCARDIOGRAM REPORT Name: MARIA DEL CARMEN LOZA Room: [facility]#: [id number] Admission: 11/10/20 Attend Phys: Discharge: 11/10/20 Date of : 71 Date of Service: 11/10/20719 Report #: [id number] THIS REPORT FOR: //name// 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
== END 2020-11-10 10:30 | disposition home or self-care (01) ==
LOC: M.ERS 06:54
PROVIDERS: Emergency Medicine Emergency Medical Services
DX: R10.31 Right lower quadrant pain (principal); R11.2 Nausea with vomiting, unspecified; K21.9 Gastro-esophageal reflux disease without esophagitis; F17.210 Nicotine dependence, cigarettes, uncomplicated; F12.90 Cannabis use, unspecified, uncomplicated; Z88.1 Allergy status to other antibiotic agents; Z88.6 Allergy status to analgesic agent; Z79.899 Other long term (current) drug therapy; Z90.49 Acquired absence of other specified parts of digestive tract; Z98.51 Tubal ligation status